=== PATIENT | male | born 1965 | race African-American/Black ===

== ENCOUNTER 2022-10-31 06:56 | Emergency (ER) | payer OTHER, SELFPAY ==
[~2022-10-31] VITALS: Ht 172.7 cm; Wt 75.0 kg
[2022-10-31] MEDS ORDERED: ONDANSETRON HCL 4MG/2ML INJ IV STA (07:01)
[2022-10-31] MEDS ORDERED: SODIUM CHLORIDE 0.9% 1,000 ML IV ONE (07:15)
[2022-10-31 07:28] LABS: BASOPHILS % 0.2 % (0.0-2.0); HEMOGLOBIN. 10.7 g/dL (14.0-18.0); LYMPHOCYTES % 9.5 % (20.0-50.0); MEAN CORPUSCULAR HEMOGLOBIN 30.5 pg (28.0-32.0); MEAN CORPUSCULAR VOLUME 90.8 fL (80.0-94.0); MEAN PLATELET VOLUME 7.5 fl (7.4-10.4); MONOCYTES % 8.5 % (2.0-8.0); NEUTROPHILS % 81.8 % (40.0-76.0); PLATELET 269 x1000/uL (130-400); RED BLOOD CELL COUNT 3.52 mill/uL (4.7-6.1); RED CELL DISTRIBUTION WIDTH 14.7 % (11.6-14.6)
[2022-10-31 07:30] LABS: CHLORIDE 94 mEq/L (98-107)
[2022-10-31 09:49] LABS: BETA HYDROXYBUTYRATE 3.9 mMol/L (0.0-0.3)
[2022-10-31 09:53] LABS: BG BASE EXCESS -0.9 mmol/L (-2.0-2.0); BG CARBOXYHEMOGLOBIN 0.2 % (0.5-1.5); BG DEOXYHEMOGLOBIN 2.3 % (0.0-5.0); BG FRACTION INSPIRED OXYGEN 21; BG HCO3 ACT 21.1 mmol/L (22.0-26.0); BG METHEMOGLOBIN 0.3 % (0.0-1.5); BG OXYGEN SATURATION 97.7 % (92.0-98.5); BG OXYHEMOGLOBIN 97.2 % (94.0-97.0); BG PCO2 26.3 mmHg (35.0-45.0); BG PH 7.522 (7.350-7.450); BG PO2 103.9 mmHg (75.0-100.0); BG SAMPLE SITE RIGHT BRACHIAL; BG TOTAL HEMOGLOBIN 10.1 g/dL (12.0-18.0); BG VENT MODE ROOM AIR
[2022-10-31] MEDS ORDERED: LORAZEPAM 2MG/ML CPJ IV ONE (10:15)
[2022-10-31] MEDS ORDERED: CHLORDIAZEPOXIDE 25MG CAPSULE PO ONE (10:15)
[2022-10-31 13:07] LABS: INR 1.3; PROTHROMBIN TIME 13.6 sec (9.6-11.0)
[2022-10-31 13:22] VITALS: BP 135/83
== END 2022-10-31 13:59 | disposition short-term general hospital (02) ==
LOC: ER 06:56
DX: K92.0 Hematemesis (principal); R79.89 Other specified abnormal findings of blood chemistry; R00.0 Tachycardia, unspecified; E11.9 Type 2 diabetes mellitus without complications; I10 Essential (primary) hypertension; Z20.822 Contact with and (suspected) exposure to COVID-19
CPT/HCPCS: 36415; 36600; 71045; 76700; 80053; 80320; 82010; 82375; 82805; 84484; 85025; 85610; 87426; 93005; 96374; 96375; 99285; C9803; J2060; J2405; J7030; G0480